=== PATIENT | female | born 1975 | race Caucasian/White ===

== ENCOUNTER → 2018-06-06 | Outpatient (REF) | payer OTHER ==
[2018-06-06 19:40] LABS: APPEARANCE, URINE CLEAR (CLEAR); BACTERIA, URINE AUTO 1+ (NEGATIVE); BILIRUBIN, URINE AUTO NEGATIVE (NEGATIVE); BLOOD, URINE BLOOD 3+ (NEGATIVE); COLOR, URINE YELLOW (YELLOW); GLUCOSE, URINE (UA) AUTO NEGATIVE (NEGATIVE); KETONE, URINE AUTO TRACE mg/dL (NEGATIVE); LEUKOCYTE ESTERASE, URINE AUTO 1+ (NEGATIVE); MUCUS, URINE SMALL (NEGATIVE); NITRITE, URINE AUTO NEGATIVE (NEGATIVE); PROTEIN, URINE AUTO NEGATIVE (NEGATIVE); RBC, URINE AUTO 4 /HPF (0-3); SPECIFIC GRAVITY URINE AUTO 1.008 (1.002-1.035); SQUAMOUS EPITHELIAL CELL UR AU 3 /HPF (0-6); UROBILINOGEN, URINE AUTO 0.2 mg/dL (0.0-2.0); WBC, URINE AUTO 5 /HPF (0-3)
== END ==
LOC: M LAB REF 16:59
DX: N92.1 Excessive and frequent menstruation with irregular cycle (principal)
CPT/HCPCS: 81001

== ENCOUNTER 2018-10-26 11:48 | Day surgery (SDC) | payer OTHER ==
[~2018-10-26] VITALS: Ht 160 cm; Wt 82.3 kg
[~2018-10-26 11:48] MED LIST: KETOROLAC 60 MG/2 ML VIAL (J1885) As Ordered ONE; LIDOCAINE 2% INJ 100 MG/5 ML SDV (FOR ANES.) As Ordered ONE; LR 1,000 ML IV ONE; METO1TAB7 PO; MIDAZOLAM INJ 2 MG/2 ML VIAL (J2250) As Ordered ONE; ONDANSETRON 4MG/2ML VIAL (J2405) As Ordered ONE; PROPOFOL 200 MG/20 ML VIAL As Ordered ONE; dexameTHASONE 4 MG/ML 1ML VIAL (J1100) As Ordered ONE; fentaNYL 100 MCG/2 ML INJECTION (J3010) As Ordered ONE
[2018-10-26 12:48] LABS: URINE PREG TEST NEGATIVE (NEGATIVE)
[2018-10-26] MEDS ORDERED: ONDANSETRON 4MG/2ML VIAL (J2405) IV PRN (15:00)
[2018-10-26] MEDS ORDERED: NORCO, ANEXSIA 5/325MG TABLET (HYDROcodone/ACETAMINOPHEN) PO PRN ×2 (15:00)
[2018-10-26] MEDS ORDERED: IBUPROFEN 600 MG TAB PO PRN (15:00)
[2018-10-26] MEDS ORDERED: LR 1,000 ML IV SCH ×2 (15:00)
[2018-10-26] MEDS ORDERED: fentaNYL 100 MCG/2 ML INJECTION (J3010) IV PRN (15:00)
[2018-10-26 15:25] VITALS: BP 137/65
--- NOTE | 2018-10-27 17:36 | RO ---
DATE OF PROCEDURE: 10/26/2018 PREOPERATIVE DIAGNOSIS: Pain and bleeding. POSTOPERATIVE DIAGNOSIS: Pain and bleeding. PROCEDURE: Dilation and curettage, hysteroscopy, NovaSure ablation. SURGEON: Dr. Yumiko Armendariz CHAIRMAN & CHIEF EXECUTIVE OFFICER: None. ANESTHESIA: LMA. DESCRIPTION OF PROCEDURE: Erica was brought to the operating room, LMA anesthesia was induced, and she was prepped, draped and positioned in the usual sterile fashion with the bladder emptied and the uterus sounded. The cervical canal was about 4 and length of cavity 10, so we had an endometrial cavity length of 6. We subsequently measured a width of 4.7, but at this point, we just had length. Then, we placed the hysteroscope after dilating the cervix adequately, and we were able to see quite marked overgrowth of the lining of the uterus. The endometrial overgrowth was sort of polypoid in nature but not individual polyps but rather sort of folds of polypoid growth, as pictured in the operative photos. We saw normal ostia. There was nothing else unusual about the internal contour of the uterus, so curettage was done to smooth out some of that overgrowth and then the NovaSure ablative device was placed, again length was set at 6, width was measured at 4.7, and an uncomplicated NovaSure ablation was then carried out, and the procedure was then ended. Estimated blood loss for the procedure was about 5 mL. Fluid replacement was crystalloid. Complications: None. Condition and Disposition: Erica tolerated the procedure well and was recovering in the recovery room in good condition.
== END 2018-10-26 16:05 | disposition home or self-care (01) ==
LOC: M SDC 11:48
PROVIDERS: ATTEND Obstetrics & Gynecology
DX: N93.9 Abnormal uterine and vaginal bleeding, unspecified (principal); R10.2 Pelvic and perineal pain; J45.909 Unspecified asthma, uncomplicated; G43.909 Migraine, unspecified, not intractable, without status migrainosus; I49.9 Cardiac arrhythmia, unspecified; K21.9 Gastro-esophageal reflux disease without esophagitis; M12.9 Arthropathy, unspecified
CPT/HCPCS: 58563; 84703; 88305; J1100; J1885; J2250; J2405; J3010

== ENCOUNTER → 2023-06-07 | Outpatient (CLI) | payer BC ==
[~2023-06-07] MED LIST changes: -KETOROLAC 60 MG/2 ML VIAL (J1885) As Ordered ONE; -LIDOCAINE 2% INJ 100 MG/5 ML SDV (FOR ANES.) As Ordered ONE; -LR 1,000 ML IV ONE; -MIDAZOLAM INJ 2 MG/2 ML VIAL (J2250) As Ordered ONE; -ONDANSETRON 4MG/2ML VIAL (J2405) As Ordered ONE; -PROPOFOL 200 MG/20 ML VIAL As Ordered ONE; -dexameTHASONE 4 MG/ML 1ML VIAL (J1100) As Ordered ONE; -fentaNYL 100 MCG/2 ML INJECTION (J3010) As Ordered ONE
== END ==
LOC: M WUC 15:32
PROVIDERS: ATTEND Nurse Practitioner Adult Health
DX: M25.562 Pain in left knee (principal)